=== PATIENT | female | born 1950 | race Caucasian/White ===

== ENCOUNTER 2019-05-27 14:49 | Inpatient (IN) | payer OTHER, BC ==
--- NOTE | 2019-05-27 14:53 | PDOC ---
Attending Attestation - Resident Resident Name: MadhavkuldeepTeresa - ED Attending Attestation I have performed the following: I have examined & evaluated the patient, The case was reviewed & discussed with the resident, I agree w/resident's findings & plan, Exceptions are as noted - HPI HPI: 05/27/19 15:03 68yo female presents c/o urinary freq. Pt states she has been on macrobid x 1 week and still having symptoms. Called by the [facility] urgent care that her bacteria in the urine is resistent to the abx she has been taking. Pt with ESBL e coli. Pt denies f/c. Denies n/v/d. Pt ambulated into the ER in NAD. Pt had excisional bx to R lower breast today. Pt states abnl mammogram on monday. Pt denies abd pain. No back pain. No flank pain. States still with similar sx as to when dx with uti, but no fevers. still on macrobid. - Physicial Exam PE: 05/27/19 15:47 Gen: aaox3, nad heart: +s1s2 reg lungs: cta b/l, R inferior breast with bx dressing in place that is dry and clean, no bleeding from the site abd: soft, obese, mild suprapubic ttp, no cva ttp ext: no c/c/e - Medical Decision Making 05/27/19 15:05 a/p: 68yo female with persistent dysuria despite a week of abx -pt follows with [facility] -pt with esbl ecoli - resistent to all abx other than ertapenem and macrbid- has been on macrobid x 1 week. -will send labs, will repeat ua/ucx -will start iv abx 05/27/19 15:48 pt agreeable to stay for iv abx and be admitted for treatment of ecoli esbl uti 05/27/19 16:03 case discussed with Hailey Hicks who accepts pt to service under dr aiken 05/27/19 16:26 no elevated wbc 05/27/19 16:27 pt will be admitted to [facility] for iv abx Discharge - Discharge Information Problems reviewed: Yes Clinical Impression/Diagnosis: UTI due to extended-spectrum beta lactamase (ESBL) producing Escherichia coli Condition: Fair - Admission Yes - Follow up/Referral - Patient Discharge Instructions - Post Discharge Activity Heart Score/ECG Review - ECG Intrepretation Comment:: 05/27/19 16:02 sinus at 89, 1st degree av block, low voltage, t wave flattening anterior leads , no acut t wave findigns, abnl ekg
--- NOTE | 2019-05-27 15:11 | PDOC ---
History of Present Illness - General Chief Complaint: Urinary Problem Stated Complaint: URINARY TRACT SYMPTOMS Time Seen by Provider: 05/27/19 14:53 - History of Present Illness Initial Comments: Caitie Domingo is a 68yo woman with a PMH of HTN, HLD, hypothyroidism, NIDDM who presents reporting a recent UTI that she was told is resistant to most antibiotics. She states that she was seen at urgent care on 05/21/19 and prescribed nitrofurantoin for a UTI. She says that her initial UA was negative, but she was treated based on symptoms. She was called later and told that the culture was positive. After starting the antiobitics, she felt improved for several days, but symptoms of frequency, urgency, and dysuria started to return 2-3 days ago. She called the urgent care physician to request a different antibiotic and was told that she would need IV antibiotics at this point. She denies any fever, chills, back pain, nausea/vomiting, hematuria, change in bowel habits, anorexia, or other systemic symptoms. Past History - Past Medical History Allergies/Adverse Reactions: Allergies Allergy/AdvReac Type Severity Reaction Status Date / Time No Known Allergies Allergy Unverified 05/27/19 14:52 Home Medications: Ambulatory Orders Allopurinol [Zyloprim -] 300 mg PO DAILY 05/27/19 Atorvastatin Ca [Lipitor] 10 mg PO HS 05/27/19 Hydrochlorothiazide 25 mg PO DAILY 05/27/19 Levothyroxine [Synthroid -] 125 mcg PO DAILY 05/27/19 Losartan Potassium 50 mg PO DAILY 05/27/19 Nitrofurantoin Macrocrystal [Macrodantin] 100 mg PO DAILY 05/27/19 Pioglitazone HCl/Metformin HCl [Actoplus Met 15 mg-500 mg Tab] 1 tab PO BID 11/08 Review of Systems - Review of Systems Comments:: General: No fevers, no chills, no weight or appetite change, no malaise HEENT: No changes in vision, no changes in hearing, no congestion, no sore throat CV: No chest pain, no palpitations, no LE edema Pulm: No SOB, no cough, no wheezing GI: No nausea or vomiting, no change in bowel habits, no melena : See HPI Musc: No back pain, no joint swelling, no recent injury Skin: No rash, no lesions, no erythema Endo: No excessive thirst, no heat/cold intolerance Heme: No unusual bruising or bleeding, no swollen glands Neuro: No syncope, no numbness/tingling, no focal weakness Vasc: No claudication Psych: No recent change in mood, no SI or HI *Physical Exam - Physical Exam General: Comfortable, no acute distress HEENT: PERRL, EOMI, MMM, voice normal, normal neck ROM Cards: RRR, no murmur appreciated Pulm: Comfortable on room air, clear to auscultation bilaterally Abd: Soft, nontender, nondistended : No CVA tenderness Ext: Atraumatic. No LE edema. ROM intact. WWP Skin: Normal color, no rashes or lesions Neuro: A&Ox3, CN grossly intact, normal speech, motor/sensory grossly intact and symmetric Psych: Mood appropriate to situation ED Treatment Course - LABORATORY CBC & Chemistry Diagram: 05/27/19 16:00 05/27/19 16:00 Medical Decision Making - Medical Decision Making 05/27/19 15:08 Caitie Domingo is a 68yo woman with a PMH of HTN, HLD, hypothyroidism, NIDDM who presents reporting recurrent dysuria, frquency and urgency despite being treated for 7 days with nitrofurantoin. She states that she was told by the urgent care physician that she would need IV antibiotics. - Pt brought results from her recent culture. ESBL ecoli, sensitive to macrobid , ertapenem, and imipenem - Repeat UA, culture - Contact precautions - Likely admission for iv antibiotics. CBC, CMP, EKG 05/27/19 16:02 - Discussed admisison with [employer] Hailey Hicks. Will admit for IV antibiotics - EKG completed. NSR, HR 89, normal axis, normal intervals. Low voltage w/ diffuse t-wave flattening. 05/27/19 16:30 - Labs reviewed. No concerning abnormalities. Potassium 4.9, but sample slightly hemolized - UA negative. Culture pending - Will start ertapenem based on culture from 05/21/[address] Denny Carlos PGY2 Discharge - Discharge Information Problems reviewed: Yes Clinical Impression/Diagnosis: UTI due to extended-spectrum beta lactamase (ESBL) producing Escherichia coli Condition: Fair - Follow up/Referral - Patient Discharge Instructions - Post Discharge Activity
[2019-05-27 16:18] LABS: BASO % 0.8 % (0-2.0); EOS % 9.2 % (0-4.5); HEMATOCRIT 40.5 % (32.4-45.2); HEMOGLOBIN 13.3 GM/dl (10.7-15.3); MCH 32.3 pg (25.7-33.7); MCHC 32.9 g/dl (32.0-36.0); MEAN CELL VOLUME 98.2 fl (80-96); MEAN PLT VOLUME 10.5 fl (7.5-11.1); MONO % 10.5 % (3.8-10.2); NEUT % 61.5 % (42.8-82.8); PLATELET COUNT 260 K/MM3 (134-434); RBC 4.13 M/mm3 (3.60-5.2); RDW 14.9 % (11.6-15.6); WHITE BLOOD COUNT 9.6 K/mm3 (4.0-10.8)
[2019-05-27 16:25] LABS: ALBUMIN 3.8 g/dl (3.4-5.0); CALCIUM 9.2 mg/dl (8.5-10); TOT PROT 7.7 g/dl (6.4-8.2)
[2019-05-27 16:27] LABS: POTASSIUM 4.9 mmol/L (3.5-5.1)
[2019-05-27] MEDS ORDERED: ERTAPENEM SODIUM 1 GM/50 ML PRE-DOCKED IVPB ONE (16:33)
--- NOTE | 2019-05-27 18:31 | HP ---
Documentation entered by Emily Louis SCRIBE, acting as scribe for Millie Hicks NP. CHIEF COMPLAINT: Dysuria PCP: Jaci Florentino Oncology: Dr. Riggins HISTORY OF PRESENT ILLNESS: Patient is a 68 year-old female with a PMH significant for HTN, HLD, and Type II NIDDM, hypothyroidism, and gout. Patient presented to the [facility] for evaluation of UTI symptoms. Patient began experiencing symptoms of dysuria, pressure, and frequency on 05/20/19. She went to an urgent care on 05/21/19 and was prescribed nitrofurantoin x 7 days. Her symptoms improved initially, but returned several days later. She completed the antibiotic course. She called the urgent care center today and was told she had a drug-resistant UTI that may need IV antibiotics, prompting her to come to the ED. Patient denies having, at any time, symptoms of fever, sweats, chills, hematuria, diarrhea, constipation. Patient is s/p right breast excisional biopsy earlier today with Dr. Riggins. 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 Allergies No Known Allergies Allergy (Unverified 05/27/19 14:52) HOME MEDICATIONS: Home Medications Medication Instructions Recorded Allopurinol [Zyloprim -] 300 mg PO DAILY 05/27/19 Atorvastatin Ca [Lipitor] 10 mg PO HS 05/27/19 Hydrochlorothiazide 25 mg PO DAILY 05/27/19 Levothyroxine [Synthroid -] 125 mcg PO DAILY 05/27/19 Losartan Potassium 50 mg PO DAILY 05/27/19 Nitrofurantoin Macrocrystal 100 mg PO DAILY 05/27/19 [Macrodantin] Pioglitazone HCl/Metformin HCl 1 tab PO BID 05/27/19 [Actoplus Met 15 mg-500 mg Tab] REVIEW OF SYSTEMS CONSTITUTIONAL: Absent: fever, chills, diaphoresis, generalized weakness, malaise, loss of appetite, weight change HEENT: Absent: rhinorrhea, nasal congestion, throat pain, throat swelling, difficulty swallowing, mouth swelling, ear pain, eye pain, visual changes CARDIOVASCULAR: Absent: chest pain, syncope, palpitations, irregular heart rate, lightheadedness , peripheral edema RESPIRATORY: Absent: cough, shortness of breath, dyspnea with exertion, orthopnea, wheezing, stridor, hemoptysis GASTROINTESTINAL: Absent: abdominal pain, abdominal distension, nausea, vomiting, diarrhea, constipation, melena, hematochezia GENITOURINARY: +dysuria,+frequency,+urgency Absent: hesitancy, hematuria, flank pain, genital pain MUSCULOSKELETAL: Absent: myalgia, arthralgia, joint swelling, back pain, neck pain SKIN: Absent: rash, itching, pallor HEMATOLOGIC/IMMUNOLOGIC: Absent: easy bleeding, easy bruising, lymphadenopathy, frequent infections ENDOCRINE: Absent: unexplained weight gain, unexplained weight loss, heat intolerance, cold intolerance NEUROLOGIC: Absent: headache, focal weakness or paresthesias, dizziness, unsteady gait, seizure, mental status changes, bladder or bowel incontinence PSYCHIATRIC: Absent: anxiety, depression, suicidal or homicidal ideation, hallucinations. PHYSICAL EXAMINATION Vital Signs - 24 hr 05/27/19 05/27/19 14:52 16:05 Temperature 97.4 F L Pulse Rate 84 Respiratory 20 Rate Blood Pressure 140/75 145/75 O2 Sat by Pulse 100 Oximetry (%) GENERAL: Awake, alert, and fully oriented, in no acute distress. Obese. HEAD: Normal with no signs of trauma. EYES: Pupils equal, round and reactive to light, extraocular movements intact, sclera anicteric, conjunctiva clear. LUNGS: Breath sounds equal, clear to auscultation bilaterally. No wheezes, and no crackles. No accessory muscle use. HEART: Regular rate and rhythm, normal S1 and S2 ABDOMEN: Soft, nontender, not distended, normoactive bowel sounds MUSCULOSKELETAL: Normal range of motion at all joints. No bony deformities or tenderness. No CVA tenderness. UPPER EXTREMITIES: 2+ pulses, warm, well-perfused. No cyanosis. No clubbing. No peripheral edema. Well healed scar on right wrist LOWER EXTREMITIES: 2+ pulses, warm, well-perfused. No calf tenderness. No peripheral edema. Well healed scars on both knees. NEUROLOGICAL: Cranial nerves II-XII intact. Normal speech. SKIN: Warm, dry, normal turgor, no rashes or lesions noted, normal capillary refill. Laboratory Results - last 24 hr 05/27/19 05/27/19 05/27/19 16:00 16:00 16:00 WBC 9.6 RBC 4.13 Hgb 13.3 Hct 40.5 MCV 98.2 H MCH 32.3 MCHC 32.9 RDW 14.9 Plt Count 260 MPV 10.5 Absolute Neuts (auto) 5.9 Neutrophils % 61.5 Lymphocytes % 18.0 Monocytes % 10.5 H Eosinophils % 9.2 H Basophils % 0.8 Sodium 138 Potassium 4.9 Chloride 102 Carbon Dioxide 27 Anion Gap 9 BUN 18.0 Creatinine 1.0 Est GFR (CKD-EPI)AfAm 67.99 Est GFR (CKD-EPI)NonAf 58.66 Random Glucose 119 H Calcium 9.2 Total Bilirubin 1.0 AST 37 ALT 25 Alkaline Phosphatase 76 Total Protein 7.7 Albumin 3.8 Urine Color Yellow Urine Appearance Clear Urine pH 7.0 Urine Protein Negative Urine Glucose (UA) Negative Urine Ketones Negative Urine Blood Negative Urine Nitrite Negative Urine Bilirubin Negative Urine Urobilinogen 0.2 Ur Leukocyte Esterase Negative ASSESSMENT/PLAN: 68 year-old female with a PMH significant for HTN, HLD, and Type II NIDDM, hypothyroidism, and gout. Admitted for E.coli ESBL UTI having failed outpatient PO antibiotic therapy. E. coli ESBL UTI --culture results from 05/21 in paper chart: MDR E.coli --completed 7 days of macrobid with recurrence and persistence of symptoms since antibiotic day #3 --no fever, no leukocytosis; UA negative here; UC pending --start meropenem (day #1) --ID consult Right breast excisional biopsy 05/27/2019 --follows with Dr. Gilson HO Fluids: PO intake adequate Electrolytes: replete as indicated Nutrition: low sodium, diabetic DVT prophylaxis: subq heparin Dispo: continues to require inpatient care. Full code. Visit type - Emergency Visit Emergency Visit: Yes Care time: The patient presented to the Emergency Department on the above date and was hospitalized for further evaluation of their emergent condition. - New Patient This patient is new to me today: Yes Date on this admission: 05/27/19 - Critical Care Critical Care patient: No Millie Hicks SENIOR VICE PRESIDENT: This documentation has been prepared by the Heriberto lópez Maria, SCRIBE, under my direction and personally reviewed by me in its entirety. I confirm that the documentation accurately reflects all work, treatment, procedures, and medical decision making performed by me.
[2019-05-27 18:50] VITALS: BMI 45.3
[2019-05-27] MEDS: INSULIN SLIDING SCALE (NOVOLOG) 1 VIAL SQ SCH (22:20)
[2019-05-27] MEDS: ATORVASTATIN CA 10 MG TABLET (FP) PO SCH (22:21)
[2019-05-27] MEDS: ACETAMINOPHEN 325 MG TABLET (FP) PO PRN (22:22)
[2019-05-27] MEDS: HEPARIN NA (PORCINE) 5,000 UNITS/ML 1ML VIAL SQ SCH (22:22)
[2019-05-27] MEDS: MELATONIN 1 MG TABLET PO PRN (23:07)
[2019-05-28] MEDS: HEPARIN NA (PORCINE) 5,000 UNITS/ML 1ML VIAL SQ SCH ×3 (06:10→22:00)
[2019-05-28] MEDS: LEVOTHYROXINE NA 125 MCG TABLET (FP) PO SCH (06:15)
[2019-05-28] MEDS: INSULIN SLIDING SCALE (NOVOLOG) 1 VIAL SQ SCH ×4 (06:18→21:57)
[2019-05-28 07:51] LABS: BASO % 0.7 % (0-2.0); HEMATOCRIT 39.1 % (32.4-45.2); HEMOGLOBIN 12.9 GM/dl (10.7-15.3); LYMPH % 18.3 % (8-40); MCH 32.8 pg (25.7-33.7); MEAN CELL VOLUME 99.4 fl (80-96); MEAN PLT VOLUME 10.9 fl (7.5-11.1); MONO % 10.4 % (3.8-10.2); NEUT % 60.6 % (42.8-82.8); PLATELET COUNT 243 K/MM3 (134-434); RBC 3.93 M/mm3 (3.60-5.2); RDW 15.4 % (11.6-15.6); WHITE BLOOD COUNT 9.8 K/mm3 (4.0-10.8)
[2019-05-28 07:59] LABS: ALBUMIN 3.5 g/dl (3.4-5.0); BILIRUBIN,TOTAL 0.6 mg/dl (0.2-1); CALCIUM 8.9 mg/dl (8.5-10); CREATININE 0.9 mg/dl (0.55-1.3); POTASSIUM 4.6 mmol/L (3.5-5.1); TOT PROT 7.1 g/dl (6.4-8.2)
--- NOTE | 2019-05-28 09:14 | PN ---
Documentation entered by Emily Louis SCRIBE, acting as scribe for Millie Hicks NP. Physical Exam: SUBJECTIVE: Patient seen and examined at bedside. Pt states she is less symptomatic. Prior to arrival she states having a crown replacement on May.20 and took 4 pills of amoxicillin an hour prior to the procedure. Pt states that before every dental procedure she takes 4 pills of amoxicillin an hour prior to her scheduled procedure. She reports having an echo and stress test within the last year. OBJECTIVE: Vital Signs Period Temp Pulse Resp BP Sys/Harp Pulse Ox Last 24 Hr 97.4 F-98.7 F 78-93 18-20 107-145/57-79 95-100 GENERAL: The patient is awake, alert, and fully oriented, in no acute distress. ENT: Ears normal, nares patent, oropharynx clear without exudates, moist mucous membranes. LUNGS: Breath sounds equal, clear to auscultation bilaterally, no wheezes, no crackles, no accessory muscle use. HEART: Regular rate and rhythm, S1, S2 without murmur, rub or gallop. EXTREMITIES: 2+ pulses, warm, well-perfused, no edema. Well healed scars on right wrist and both knees. NEUROLOGICAL: Cranial nerves II through XII grossly intact. Normal speech, gait not observed. SKIN: Warm, dry, normal turgor, no rashes or lesions noted Laboratory Results - last 24 hr 05/27/19 05/27/19 05/27/19 16:00 16:00 16:00 WBC 9.6 RBC 4.13 Hgb 13.3 Hct 40.5 MCV 98.2 H MCH 32.3 MCHC 32.9 RDW 14.9 Plt Count 260 MPV 10.5 Absolute Neuts (auto) 5.9 Neutrophils % 61.5 Lymphocytes % 18.0 Monocytes % 10.5 H Eosinophils % 9.2 H Basophils % 0.8 Sodium 138 Potassium 4.9 Chloride 102 Carbon Dioxide 27 Anion Gap 9 BUN 18.0 Creatinine 1.0 Est GFR (CKD-EPI)AfAm 67.99 Est GFR (CKD-EPI)NonAf 58.66 POC Glucometer Random Glucose 119 H Calcium 9.2 Total Bilirubin 1.0 AST 37 ALT 25 Alkaline Phosphatase 76 Total Protein 7.7 Albumin 3.8 Urine Color Yellow Urine Appearance Clear Urine pH 7.0 Urine Protein Negative Urine Glucose (UA) Negative Urine Ketones Negative Urine Blood Negative Urine Nitrite Negative Urine Bilirubin Negative Urine Urobilinogen 0.2 Ur Leukocyte Esterase Negative 05/27/19 05/28/19 05/28/19 22:19 06:16 06:17 WBC RBC Hgb Hct MCV MCH MCHC RDW Plt Count MPV Absolute Neuts (auto) Neutrophils % Lymphocytes % Monocytes % Eosinophils % Basophils % Sodium Potassium Chloride Carbon Dioxide Anion Gap BUN Creatinine Est GFR (CKD-EPI)AfAm Est GFR (CKD-EPI)NonAf POC Glucometer 93 14 99 Random Glucose Calcium Total Bilirubin AST ALT Alkaline Phosphatase Total Protein Albumin Urine Color Urine Appearance Urine pH Urine Protein Urine Glucose (UA) Urine Ketones Urine Blood Urine Nitrite Urine Bilirubin Urine Urobilinogen Ur Leukocyte Esterase Active Medications Generic Name Dose Route Start Last Admin Trade Name Freq PRN Reason Stop Dose Admin Acetaminophen 650 mg 05/27/19 20:44 05/27/19 22:22 Tylenol - PO 650 mg Q6H PRN Administration PAIN SCALE 1-5 Allopurinol 300 mg 05/28/19 10:00 Zyloprim - PO DAILY [facility] Atorvastatin Calcium 10 mg 05/27/19 22:00 05/27/19 22:21 Lipitor - PO 10 mg HS EMY Administration Heparin Sodium (Porcine) 5,000 unit 05/27/19 22:00 05/28/19 06:10 Heparin - SQ Not Given TID [facility] Hydrochlorothiazide 25 mg 05/28/19 10:00 Hctz - PO DAILY [facility] Meropenem 1 gm/ Dextrose 100 mls @ 200 mls/hr 05/28/19 10:00 IVPB Q8H-IV [facility] Insulin Aspart 1 vial 05/27/19 22:00 05/28/19 06:18 Novolog Vial Sliding Scale - SQ Not Given ACHS [facility] Protocol Levothyroxine Sodium 125 mcg 05/28/19 07:00 05/28/19 06:15 Synthroid - PO 125 mcg ACBK EMY Administration Losartan Potassium 50 mg 05/28/19 10:00 Cozaar - PO DAILY [facility] Melatonin 1 mg 05/27/19 20:44 05/27/19 23:07 Melatonin PO 1 mg HS PRN Administration INSOMNIA ASSESSMENT/PLAN: 68 year-old female with a PMH significant for HTN, HLD, and Type II NIDDM, hypothyroidism, and gout. Admitted for E.coli ESBL UTI having failed outpatient PO antibiotic therapy. E. coli ESBL UTI --culture results from 05/21 in paper chart: MDR E.coli --completed 7 days of macrobid with recurrence and persistence of symptoms since antibiotic day #3 --no fever, no leukocytosis; UA negative here; UC pending --start meropenem (day #1) --ID consult Right breast excisional biopsy 05/27/2019 --follows with Dr. Gilson HO Fluids: PO intake adequate Electrolytes: replete as indicated Nutrition: low sodium, diabetic DVT prophylaxis: subq heparin Dispo: continues to require inpatient care. Full code. Millie Hicks NP: This documentation has been prepared by the Heriberto lópez Maria, SCRIBE, under my direction and personally reviewed by me in its entirety. I confirm that the documentation accurately reflects all work, treatment, procedures, and medical decision making performed by me.
--- NOTE | 2019-05-28 09:26 | EKG ---
Test Reason : Blood Pressure : / mmHG Vent. Rate : 089 BPM Atrial Rate : 089 BPM P-R Int : 200 ms QRS Dur : 062 ms QT Int : 370 ms P-R-T Axes : 050 -11 043 degrees QTc Int : 450 ms POOR DATA QUALITY, INTERPRETATION MAY BE ADVERSELY AFFECTED NORMAL SINUS RHYTHM LOW VOLTAGE QRS NONSPECIFIC ST ABNORMALITY ABNORMAL ECG NO PREVIOUS ECGS AVAILABLE Confirmed by Luis Enrique Marin MD ([id number]) on 05/28/2019 9:26:34 AM Referred By: Confirmed By:Luis Enrique Marin MD
[2019-05-28] MEDS ORDERED: MEROPENEM 1 GM VIAL (RESTRICTED TO ID) IVPB ONE ×2 (09:33→17:28)
[2019-05-28] MEDS ORDERED: DEXTROSE 5%-WATER 100 ML IVPB ONE ×3 (09:33→17:28)
[2019-05-28] MEDS ORDERED: MEROPENEM 1 GM in DEXTROSE 5%-WATER 100 ML IVPB SCH (10:00)
[2019-05-28] MEDS: LOSARTAN POTASSIUM 50 MG TABLET (FP) PO SCH (10:20)
[2019-05-28] MEDS: HYDROCHLOROTHIAZIDE 25 MG TABLET (FP) PO SCH (10:20)
[2019-05-28] MEDS: ALLOPURINOL 300 MG TABLET (FP) PO SCH (10:21)
--- NOTE | 2019-05-28 15:11 | CON.ID ---
Consult Consult Specialty:: infectious diseases - Past Medical History ...: No - Alcohol/Substance Use Hx Alcohol Use: Yes (social) - Smoking History Smoking history: Never smoked Home Medications - Allergies Allergies/Adverse Reactions: Allergies Allergy/AdvReac Type Severity Reaction Status Date / Time No Known Allergies Allergy Unverified 05/27/19 14:52 - Home Medications Home Medications: Ambulatory Orders Allopurinol [Zyloprim -] 300 mg PO DAILY 05/27/19 Atorvastatin Ca [Lipitor] 10 mg PO HS 05/27/19 Hydrochlorothiazide 25 mg PO DAILY 05/27/19 Levothyroxine [Synthroid -] 125 mcg PO DAILY 05/27/19 Losartan Potassium 50 mg PO DAILY 05/27/19 Nitrofurantoin Macrocrystal [Macrodantin] 100 mg PO DAILY 05/27/19 Pioglitazone HCl/Metformin HCl [Actoplus Met 15 mg-500 mg Tab] 1 tab PO BID 11/08 Physical Exam Vital Signs: Vital Signs Temperature 98.3 F 05/28/19 14:17 Pulse Rate 88 05/28/19 14:17 Respiratory Rate 19 05/28/19 14:17 Blood Pressure 132/59 L 05/28/19 14:17 O2 Sat by Pulse Oximetry (%) 96 05/28/19 14:17 Labs: CBC, BMP 05/28/19 07:05 05/28/19 07:05
[2019-05-28] MEDS: MEROPENEM 1 GM in DEXTROSE 5%-WATER 100 ML IVPB SCH (17:53)
[2019-05-28] MEDS ORDERED: PT OWN MED DRAWER 7, Y5N ONE (21:41)
[2019-05-28] MEDS: ACETAMINOPHEN 325 MG TABLET (FP) PO PRN (21:43)
[2019-05-28] MEDS: MELATONIN 1 MG TABLET PO PRN (21:43)
[2019-05-28] MEDS: ATORVASTATIN CA 10 MG TABLET (FP) PO SCH (21:43)
[2019-05-29] MEDS ORDERED: DEXTROSE 5%-WATER 100 ML IVPB ONE ×3 (01:03→17:43)
[2019-05-29] MEDS ORDERED: MEROPENEM 1 GM VIAL (RESTRICTED TO ID) IVPB ONE ×3 (01:04→17:43)
[2019-05-29] MEDS: MEROPENEM 1 GM in DEXTROSE 5%-WATER 100 ML IVPB SCH ×3 (01:31→18:09)
[2019-05-29] MEDS: HEPARIN NA (PORCINE) 5,000 UNITS/ML 1ML VIAL SQ SCH ×2 (05:48→13:58)
[2019-05-29] MEDS: INSULIN SLIDING SCALE (NOVOLOG) 1 VIAL SQ SCH ×3 (06:12→17:05)
[2019-05-29] MEDS: LEVOTHYROXINE NA 125 MCG TABLET (FP) PO SCH (06:12)
[2019-05-29] MEDS: LOSARTAN POTASSIUM 50 MG TABLET (FP) PO SCH (09:55)
[2019-05-29] MEDS: ALLOPURINOL 300 MG TABLET (FP) PO SCH (09:55)
[2019-05-29] MEDS: HYDROCHLOROTHIAZIDE 25 MG TABLET (FP) PO SCH (09:56)
[2019-05-29] MEDS: PIOGLITAZONE HCL 15 MG TABLET (FP) PO SCH ×2 (09:57→17:05)
[2019-05-29] MEDS: metFORMIN HCL 500 MG TABLET (FP) PO SCH ×2 (09:57→17:05)
[2019-05-29 14:50] VITALS: BP 152/87; PULSE 96; TEMP 98
--- NOTE | 2019-05-29 14:59 | PN ---
Progress Note, Physician History of Present Illness: stable - Current Medication List Current Medications: Active Medications Acetaminophen (Tylenol -) 650 mg PO Q6H PRN PRN Reason: PAIN SCALE 1-5 Last Admin: 05/28/19 21:43 Dose: 650 mg Allopurinol (Zyloprim -) 300 mg PO DAILY [facility] Last Admin: 05/29/19 09:55 Dose: 300 mg Atorvastatin Calcium (Lipitor -) 10 mg PO HS [facility] Last Admin: 05/28/19 21:43 Dose: 10 mg Heparin Sodium (Porcine) (Heparin -) 5,000 unit SQ TID [facility] Last Admin: 05/29/19 13:58 Dose: Not Given Hydrochlorothiazide (Hctz -) 25 mg PO DAILY [facility] Last Admin: 05/29/19 09:56 Dose: 25 mg Meropenem 1 gm/ Dextrose 100 mls @ 200 mls/hr IVPB Q8H-IV [facility] Last Admin: 05/29/19 09:58 Dose: 200 mls/hr Insulin Aspart (Novolog Vial Sliding Scale -) 1 vial SQ ACHS [facility]; Protocol Last Admin: 05/29/19 11:44 Dose: Not Given Levothyroxine Sodium (Synthroid -) 125 mcg PO ACBK [facility] Last Admin: 05/29/19 06:12 Dose: 125 mcg Losartan Potassium (Cozaar -) 50 mg PO DAILY [facility] Last Admin: 05/29/19 09:55 Dose: 50 mg Melatonin (Melatonin) 1 mg PO HS PRN PRN Reason: INSOMNIA Last Admin: 05/28/19 21:43 Dose: 1 mg Metformin HCl (Glucophage -) 500 mg PO BIDAC [facility] Last Admin: 05/29/19 09:57 Dose: 500 mg Pioglitazone HCl (Actos -) 15 mg PO BIDAC [facility] Last Admin: 05/29/19 09:57 Dose: 15 mg - Objective Vital Signs: Vital Signs Temperature 98.0 F 05/29/19 14:00 Pulse Rate 96 H 05/29/19 14:00 Respiratory Rate 19 05/29/19 14:00 Blood Pressure 152/87 05/29/19 14:00 O2 Sat by Pulse Oximetry (%) 97 05/29/19 14:00 Constitutional: Yes: No Distress, Calm Labs: CBC, BMP 05/28/19 07:05 05/28/19 07:05 Assessment/Plan 68 year-old female with a PMH significant for HTN, HLD, and Type II NIDDM, hypothyroidism, and gout. Admitted for E.coli ESBL UTI having failed outpatient PO antibiotic therapy. E. coli ESBL UTI Right breast excisional biopsy 05/27/2019 plan patient to get ertapenam for 12 more days 1g daily rest a sper the team
== END 2019-05-29 18:44 | disposition home or self-care (01) | DRG 690 ==
LOC: FER 14:49 → FM/S 15:49
PROVIDERS: ADMIT Internal Medicine; ATTEND Nurse Practitioner Acute Care
PROC: 02HV33Z Insertion of Infusion Device into Superior Vena Cava, Percutaneous Approach (ICD-10-PCS; principal; 2019-05-29)
PROC: B548ZZA Ultrasonography of Superior Vena Cava, Guidance (ICD-10-PCS; 2019-05-29)
DX: N39.0 Urinary tract infection, site not specified (principal); Z68.42 Body mass index [BMI] 45.0-49.9, adult; I10 Essential (primary) hypertension; E78.5 Hyperlipidemia, unspecified; E03.9 Hypothyroidism, unspecified; E11.9 Type 2 diabetes mellitus without complications; Z79.84 Long term (current) use of oral hypoglycemic drugs; M10.9 Gout, unspecified; E66.9 Obesity, unspecified; B96.20 Unspecified Escherichia coli [E. coli] as the cause of diseases classified elsewhere
CPT/HCPCS: 19083; 36415; 36569; 76641-TC-50; 77001-TC-FY; 77063-TC; 77067-TC; 80053; 81003; 82962; 83735; 85025; 87040; 87086; 87899; 93005; 99282-25; A4648; C1751

== ENCOUNTER 2023-05-03 08:56 | Day surgery (SDC) | payer OTHER, BC ==
[2023-04-28 11:41] VITALS: BMI 41.1
[2023-05-03] MEDS: TROPICAMIDE 1% OPHTH SOLN 15 ML BOTTLE ONE ×3 (09:50→10:00)
[2023-05-03] MEDS: CIPROFLOXACIN HCL 0.3% OPHTH 2.5ML BOTTLE ONE ×3 (09:50→10:00)
[2023-05-03] MEDS: CYCLOPENTOLATE 2% OPHTH SOLN 2 ML BOTTLE ONE ×3 (09:50→10:00)
[2023-05-03] MEDS: PHENYLEPHRINE 2.5% OPTHALMIC DROP 2ML BOTTLE ONE ×3 (09:50→10:00)
[2023-05-03] MEDS ORDERED: TETRACAINE 0.5% OPHTH SOLN 2 ML BOTTLE ONE (10:03)
[2023-05-03] MEDS ORDERED: LIDOCAINE 1% P/F 10 MG/ML VIAL ONE (10:03)
[2023-05-03] MEDS ORDERED: MIDAZOLAM HCL 2 MG/2 ML SINGLE DOSE VIAL ONE ×2 (11:09→11:13)
[2023-05-03] MEDS ORDERED: ONDANSETRON 4 MG/2 ML VIAL ONE ×2 (11:13→12:00)
[2023-05-03] MEDS ORDERED: ACETAMINOPHEN 325 MG TABLET (FP) ONE (12:03)
[2023-05-03] MEDS ORDERED: ACETAMINOPHEN 325 MG TABLET (FP) PO ONE (12:10)
[2023-05-03 12:45] VITALS: RESP 20; TEMP 97.1
[2023-05-03 12:56] VITALS: BP 116/76; PULSE 89
== END 2023-05-03 12:40 | disposition home or self-care (01) ==
LOC: FASU 08:56
PROVIDERS: ATTEND Ophthalmology
PROC: 08RJ3JZ Replacement of Right Lens with Synthetic Substitute, Percutaneous Approach (ICD-10-PCS; principal; 2023-05-03 11:19)
DX: H26.8 Other specified cataract (principal)
CPT/HCPCS: 66984; V2632; 82962

== ENCOUNTER 2023-05-24 06:46 | Day surgery (SDC) | payer OTHER, BC ==
[2023-05-16 16:01] VITALS: BMI 41.1
[2023-05-24] MEDS ORDERED: PHENYLEPHRINE/KETOROLAC 4 ML VIAL IO ONE (07:19)
[2023-05-24] MEDS ORDERED: NEO/POLYMYX B SULF/DEXAMETH OPHTHALMIC 5ML BOTTLE ONE (07:20)
[2023-05-24] MEDS ORDERED: TETRACAINE 0.5% OPHTH SOLN 2 ML BOTTLE ONE ×2 (07:20→07:21)
[2023-05-24] MEDS ORDERED: EPINEPHrine/PF 1 MG/1 ML (1:1,000) AMPULE ONE (07:20)
[2023-05-24] MEDS ORDERED: CARBACHOL 0.01% INTRA-OCULAR 1.5 ML VIAL ONE (07:20)
[2023-05-24] MEDS ORDERED: ACETYLCHOLINE 1:100 INTRA-OCUL 20 MG/2 ML KIT ONE (07:20)
[2023-05-24] MEDS ORDERED: BSS (NA/CA/MG/K) BALANCED SALT SOLUTION OPHTH SOLN 15 ML BOTTLE ONE (07:20)
[2023-05-24] MEDS ORDERED: LIDOCAINE 1% P/F 10 MG/ML VIAL ONE (07:20)
[2023-05-24] MEDS ORDERED: LIDOCAINE HCL/PF 1% SDV 5ML VIAL ONE (07:21)
[2023-05-24] MEDS: TROPICAMIDE 1% OPHTH SOLN 15 ML BOTTLE ONE ×3 (07:25→07:35)
[2023-05-24] MEDS: CYCLOPENTOLATE 2% OPHTH SOLN 2 ML BOTTLE ONE ×3 (07:25→07:35)
[2023-05-24] MEDS: CIPROFLOXACIN HCL 0.3% OPHTH 2.5ML BOTTLE ONE ×3 (07:25→07:35)
[2023-05-24] MEDS: PHENYLEPHRINE 2.5% OPTHALMIC DROP 2ML BOTTLE ONE ×3 (07:25→07:35)
[2023-05-24] MEDS ORDERED: MIDAZOLAM HCL 2 MG/2 ML SINGLE DOSE VIAL ONE ×2 (08:40)
[2023-05-24 09:18] VITALS: RESP 18; TEMP 97.1
[2023-05-24 09:37] VITALS: BP 131/60; PULSE 89
== END 2023-05-24 09:50 | disposition home or self-care (01) ==
LOC: FASU 06:46
PROVIDERS: ATTEND Ophthalmology
PROC: 08RK3JZ Replacement of Left Lens with Synthetic Substitute, Percutaneous Approach (ICD-10-PCS; principal; 2023-05-24 08:42)
DX: H26.8 Other specified cataract (principal)
CPT/HCPCS: 66984; V2632; 82962; J1097